=== PATIENT | female | born 1965 | race Caucasian/White ===

== ENCOUNTER → 2019-12-12 | Outpatient (CLI) | payer OTHER ==
[~2019-12-12] MED LIST: ASPIRIN EC81 M1 PO; REMERON30 MG PO; ROSUVASTATIN CA20 MG PO; XANAX 0.5 MG0.5 MG PO
== END ==
LOC: LAB
PROVIDERS: ATTEND Internal Medicine
DX: Z01.812 Encounter for preprocedural laboratory examination (principal); Z20.828 Contact with and (suspected) exposure to other viral communicable diseases

== ENCOUNTER → 2019-12-12 | Outpatient (CLI) | payer BC, OTHER | LOC: SJCVCIMAG | PROVIDERS: ATTEND Internal Medicine | DX: R07.9 Chest pain, unspecified (principal); R06.00 Dyspnea, unspecified ==

== ENCOUNTER → 2019-12-14 | Outpatient (CLI) | payer BC, OTHER ==
[~2019-12-14] VITALS: Ht 160 cm; Wt 58.1 kg
[2019-12-14 07:04] VITALS: BP 105/64
--- NOTE | 2019-12-14 09:52 | CATHLAB ---
[facility] [place] [address] INVASIVE PROCEDURE REPORT Name: BRIDGER QUIROGA Room #: REG FLORA Carbajal.#: [id number] Admission: 12/14/19 Attend Phys: Dereje Truong MD, Discharge: Date of : 69 Report #: [id number] THIS REPORT FOR: cc: Abhijit Jeffery MD, Steven A. MD Lundgren, Craig H. MD [facility] ~ APPROVED REPORT Study performed: 12/14/2019 08:05:01 Patient Details Patient Status: Out-Patient Room #: The patient is a 54 year-old female Event Personnel Dereje Truong Consulting Technical Director, Pricila Vargas RN RN, Michael Walker RN RN, Agustina Kathleen RTR Scrub, Priscilla York RTR Monitor Procedures Performed Art Access - R femoral artery* Left Heart Cath w/or w/o Coronaries [id number] [facility] [id number] Initial Mod Sed Same Phys/QHP Gr5y [id number] Mod Sed Same Phys/QHP Ea [id number] Hemostasis w/ Mynx Procedure Narrative The patient was brought electively to the Cardiac Catheterization Laboratory and was prepped and draped in a sterile manner. The Right Groin^ was infiltrated with 1% Lidocaine subcutaneous anesthesia. A PINNACLE 6FR Sheath #[id number] sheath was inserted into the RFA^. Coronary angiography was performed using coronary diagnostic catheters. The right coronary system was accessed and visualized with a JR4 catheter. The left coronary system was accessed and visualized with a JL4 catheter. The left ventricle was accessed and visualized with a PIGTAIL catheter. Left ventriculogram was performed in 30 degree projection. Closure device was deployed with a Fr MYNXGRIP 6/7F #[id number]. The patient tolerated the procedure well and there were no complications associated with the procedure. There was no hematoma. Intraoperative Conscious Sedation Sedation start time: 8:22 Case end Time: 8:52 Fentanyl 50 mcg Versed 2.[address] [address] INVASIVE PROCEDURE REPORT Name: BRIDGER QUIROGA Room #: REG [facility]#: [id number] Admission: 12/14/19 Attend Phys: Dereje Truong, Discharge: Date of : 69 Report #: [id number] Fluoro Time: 3.20 minutes Dose: DAP 2789.00 cGycm2 401 mGy Contrast Type and Amount: Omnipaque 90 ml Coronary Angiography The patient's coronary anatomy is right dominant. Diagnostic Cath Left Main Normal LAD Normal Diagonal 1 Normal Diagonal 2 Normal Circumflex Large and normal OM1 Normal OM2 Distally arising second marginal branch, normal Right Coronary Angiographically normal R PDA Normal posterior descending Left Ventriculography The left ventricle is normal in size with normal contractility. The left ventricular ejection fraction is estimated to be 60-65%. Left ventricular wall motion abnormalities are not present. There is no mitral insufficiency. Hemodynamics The aortic pressure is 144/73 mmHg with a mean of 105 mmHg. The left ventricular pressure is 137/5 mmHg with a mean of mmHg. The left ventricular end diastolic pressure is 15 mmHg. Conclusion 1. Normal global and regional left ventricular systolic function. EF 65% 2. Normal left main 3. Normal coronary vasculature. Right coronary dominant circulation <ELECTRONICALLY SIGNED> By: Dereje Truong MD, FACC 12/14/1950 1 1 Dereje Truong MD, FACC /INF
== END | disposition home or self-care (01) ==
LOC: CATH 07:00
PROVIDERS: ATTEND Internal Medicine
DX: R06.02 Shortness of breath (principal); E78.5 Hyperlipidemia, unspecified; F32.9 Major depressive disorder, single episode, unspecified; F41.9 Anxiety disorder, unspecified; F17.210 Nicotine dependence, cigarettes, uncomplicated; Z90.49 Acquired absence of other specified parts of digestive tract; Z90.710 Acquired absence of both cervix and uterus; Z79.899 Other long term (current) drug therapy; Z98.890 Other specified postprocedural states; Z79.82 Long term (current) use of aspirin